=== PATIENT | female | born 1955 | race Caucasian/White ===

== ENCOUNTER 2018-11-08 08:56 | Day surgery (SDC) | payer MEDICARE, MEDICAID ==
[~2018-11-08] VITALS: Ht 154.9 cm; Wt 69.8 kg
[2018-11-08] MEDS ORDERED: ALTACE 2.5MG T2.5 MG PO (09:34)
[2018-11-08] MEDS ORDERED: PLETAL50 MG PO (09:35)
[2018-11-08] MEDS ORDERED: ZANTAC 150MG T150 MG PO (09:36)
[2018-11-08] MEDS ORDERED: NORVASC2.5 MG PO (09:37)
[2018-11-08] MEDS ORDERED: GLUCOPHAGE XR500 M1 PO (09:38)
[2018-11-08] MEDS ORDERED: SOMA 350MG350 MG/TAB PO (09:39)
[2018-11-08 09:43] VITALS: BP 139/88; PULSE 77; TEMP 97.1
[2018-11-08 12:40] VITALS: BP 140/80; PULSE 16; TEMP 97.5
[2018-11-08 12:55] VITALS: BP 145/90; PULSE 69
[2018-11-08 13:10] VITALS: BP 149/81; PULSE 65
--- NOTE | 2018-11-08 13:46 | NUR ---
PT RETURNED FROM ENDO OR SUITE PER CART INTO BAY#4. PT ALERT AND ORIENTATED, ALITTLE SLEEPY. REQUESTED A COKE AND BLUEBERRY MUFFIN. LUNGS CLEAR, HRR, BOWEL SOUNDS PRESENT AND ACTIVE. PT DENIES PAIN, NAUSEA AND DISCOMFORT. PT DAUGHTER CALLED AND AT PT BEDSIDE. WILL CONT TO MONITOR PROGRESS.
--- NOTE | 2018-11-08 13:49 | NUR ---
PT TOLERATED FOOD AND FLUIDS. VSS, TALKING WITH DAUGHTER. REQUESTING TO GET 'IV OUT AND GO HOME'. DENIES NAUSEA AND VOMITING OR DISCOMFORT. WILL MONITOR.
--- NOTE | 2018-11-08 13:52 | NUR ---
PT SITTING UP, TALKING WITH DAUGHTER. IV DC'D PER RIGHT WRIST, PT TOLERATED WELL. DENIES, NAUSEA, VOMITING OR PAIN. DC INSTRUCTIONS GIVEN, PT AND DAUGHTER VOICE UNDERSTANDING. REQUESTS FOLLOW UP IN HIS OFFICE NEXT WEEK. OFFICE CALLED. APPOINTMENT OPTIONS ARE NOT COMPATIBLE WITH DAUGHTERS WORK SCHEDULE. GAVE DAUGHTER AND PT THE PHONE NUMBER TO MAKE APPT FOR NEXT WEEK. THEY BOTH VOICE UNDERSTANDING. ALL QUESTIONS ANSWERED. PT TAKEN OUT VIA WC TO FAMILY VEHICLE. DAUGHTER DRIVING.
== END 2018-11-08 13:30 | disposition home or self-care (01) ==
LOC: SDCO 08:56
DX: Z86.010 Personal history of colon polyps (principal); D12.2 Benign neoplasm of ascending colon; K62.3 Rectal prolapse; N81.10 Cystocele, unspecified; Z90.710 Acquired absence of both cervix and uterus; Z90.721 Acquired absence of ovaries, unilateral; Z90.49 Acquired absence of other specified parts of digestive tract; Z79.899 Other long term (current) drug therapy; I10 Essential (primary) hypertension; I73.1 Thromboangiitis obliterans [Buerger's disease]; Z87.891 Personal history of nicotine dependence; K21.9 Gastro-esophageal reflux disease without esophagitis; Z79.02 Long term (current) use of antithrombotics/antiplatelets; E11.42 Type 2 diabetes mellitus with diabetic polyneuropathy
CPT/HCPCS: J2704; J3010; J7120

== ENCOUNTER 2020-09-19 05:31 | Day surgery (SDC) | payer MEDICARE, MEDICAID ==
[2020-09-19] VITALS (15 sets, daily range): BP systolic 92–115; BP diastolic 8–82; PULSE 64–88; TEMP 97.6–97.9
[~2020-09-19] VITALS: Ht 154.9 cm; Wt 67.3 kg
[~2020-09-19 05:31] MED LIST: ALTACE 2.5MG T2.5 MG PO; GLUCOPHAGE XR500 M1 PO; NORVASC2.5 MG PO; PLETAL50 MG PO; SOMA 350MG350 MG/TAB PO; ZANTAC 150MG T150 MG PO
[2020-09-19] MEDS ORDERED: LOPRESSOR 550 MG/TAB PO (06:03)
[2020-09-19] MEDS ORDERED: CRESTOR 10MG10 MG PO (06:04)
[2020-09-19] MEDS ORDERED: PLETAL 100MG T100 MG PO (06:04)
[2020-09-19] MEDS ORDERED: PLAVIX 75MG TAB75 MG PO (06:04)
[2020-09-19] MEDS ORDERED: VISTARIL 2525 MG/CAP PO (06:05)
[2020-09-19] MEDS ORDERED: FLEXERIL 1010 MG/TAB PO (06:05)
[2020-09-19] MEDS ORDERED: ELIQUIS 5MG PO (06:05)
[2020-09-19] MEDS ORDERED: PREVACID 15MG15 M1 PO (06:06)
[2020-09-19] MEDS ORDERED: NEURONTIN300 MG/CAP PO (06:06)
[2020-09-19] MEDS ORDERED: TRULICITY0.75 MG/0. SQ (06:06)
[2020-09-19] MEDS ORDERED: TYLENOL W/COD1 UDTAB PO (06:06)
[2020-09-19] MEDS ORDERED: BASAGLAR K100 UNIT/1 SQ (06:07)
--- NOTE | 2020-09-19 11:05 | NUR ---
returned to room per bed from PACU, awake and alert, IV infusing and placed on pump at 75ml/hr, O2 on at 3L/NC and O2 sat 99%, O2 down to 2L and will monitor, robotic sites CD&I, SCDs on bilaterally, c/o some pain, daughter at bedside
--- NOTE | 2020-09-19 11:30 | NUR ---
give water and takes without nausea, requesting sprite and provided, request something for pain
--- NOTE | 2020-09-19 11:45 | NUR ---
medicated with scheduled toradol and tylenol ES, requesting tylenol #3 as she takes that at home, explained to her I would need to start with what I gave her and then if continues with pain will provide pain pill,
--- NOTE | 2020-09-19 12:45 | NUR ---
full assessment completed, see interventions for further info, also provided clear liquid diet per her request, explained if she tolerates this well will changed to genral diet for supper, verbalizes understanding
--- NOTE | 2020-09-19 14:15 | NUR ---
tolerated clear liquid diet, instructed on ordering regular food for supper,
--- NOTE | 2020-09-19 14:47 | NUR ---
resting quiet sitting up in bed, provided coffee per her request, no other needs voiced at this time
--- NOTE | 2020-09-19 15:42 | NUR ---
bedside shift report given to ANGEL Lino
--- NOTE | 2020-09-19 15:47 | NUR ---
Bedside report recieved from ANGEL Bell. Patient currently laying in bed asleep.
[2020-09-20 03:56] VITALS: BP 115/59; PULSE 84; TEMP 97
--- NOTE | 2020-09-20 05:26 | NUR ---
Assessment completed, alert, oriented. Patient is in pain all night. PRN pain meds given per order. Has elias catheter last night and pulled this morning. Patient can able to get up stand by assisst. Denies SOB she is on Ancef for prophylactic. Has 5x insicion sites in belly that is glued. No further complain, continue to monitor.
[2020-09-20 07:20] VITALS: BP 119/56; PULSE 68; TEMP 97.9
--- NOTE | 2020-09-20 08:41 | NUR ---
rounded. Informed him of medication list needing reviewed. Plan of care reviewed, patient reports she cant go home today, she will not have a ride. Patient out of bed. Up to chair. Pain with movement. She voided pale yellow urine. Iv to INT. Abdomen soft, reports passing flatus. lap site edges well approximated. blood sugar stable at 109.Will monitor.
[2020-09-20 11:03] VITALS: BP 141/90; PULSE 83; TEMP 98.3
--- NOTE | 2020-09-20 11:15 | NUR ---
Patient has been independent in room. She has been up to the bathroom. Will monitor.
--- NOTE | 2020-09-20 14:54 | NUR ---
Patient resting in bed. Encouraged her to rest. Rated her pain a 10/10. Roxicodone per request. Pain increased with coughing. She tolerated lunch without nausea. She continues to void adequately. Also she reports loose stools and does not want anymore stool softners.
[2020-09-20 16:00] VITALS: BP 131/66; PULSE 65; TEMP 98.3
--- NOTE | 2020-09-20 19:16 | NUR ---
Patient independent in room. Continue with eras protocol. Tylenol & Toradol as scheduled. Tolerating diet. Voiding & bowels working. Bedside report to Kyle Prasad
[2020-09-20 19:33] VITALS: BP 137/60; PULSE 56; TEMP 97.9
[2020-09-20 23:29] VITALS: BP 124/46; PULSE 60; TEMP 97.9
[2020-09-21 03:52] VITALS: BP 147/73; PULSE 56; TEMP 97.6
--- NOTE | 2020-09-21 05:30 | NUR ---
RESTING QUIETLY/SLEEPING MOST OF NIGHT. NO N/V. UP INDEPENDENTLY IN ROOM. OXYCODONE AND SCHEDULED TORADOL FOR PAIN.
[2020-09-21 07:10] VITALS: BP 152/91; PULSE 50; TEMP 98.5
[2020-09-21 12:28] VITALS: BP 140/67; PULSE 65; TEMP 97.7
[2020-09-21] MEDS ORDERED: NORCO 325 MG-51 TAB PO (12:46)
[2020-09-21] MEDS ORDERED: COLACE 100100 MG/CAP PO (12:46)
--- NOTE | 2020-09-21 13:20 | NUR ---
PT BEING D/C AT THIS TIME. NO S/S OF DISTRESS NOTICED. PT AOX3. D/C INSTRUCTIONS REVIEWED WITH THE PT AND SHE VERBALIZES THAT SHE UNDERSTANDS. PT GIVE 4 TABS OF NARCO MEDICATION PER MD ORDER DUE TO THE FACT THAT HER PHARMACY IS CLOSED. INSTRUCTIONS ON MEDICATION REVIEWED WITH PT. PT GOT DRESSED AND IS WAITING FOR HER TRANSPORTATION HOME. PT PACKED HER BELONGINGS.
== END 2020-09-21 15:40 | disposition home or self-care (01) ==
LOC: SDCO 05:31 → SURG 11:05 → SDCO 09-21 15:40
DX: N99.3 Prolapse of vaginal vault after hysterectomy (principal); K62.3 Rectal prolapse; I10 Essential (primary) hypertension; E11.42 Type 2 diabetes mellitus with diabetic polyneuropathy; I48.91 Unspecified atrial fibrillation; I73.1 Thromboangiitis obliterans [Buerger's disease]; I73.9 Peripheral vascular disease, unspecified; Z86.73 Personal history of transient ischemic attack (TIA), and cerebral infarction without residual deficits; K21.9 Gastro-esophageal reflux disease without esophagitis; Z79.899 Other long term (current) drug therapy; Z87.891 Personal history of nicotine dependence; Z79.02 Long term (current) use of antithrombotics/antiplatelets; Z79.01 Long term (current) use of anticoagulants; Z79.82 Long term (current) use of aspirin; Z98.62 Peripheral vascular angioplasty status; Z95.818 Presence of other cardiac implants and grafts
CPT/HCPCS: OP; A4314; C1781; J0690; J1100; J1885; J2250; J2270; J2405; J2704; J3010; J7120

== ENCOUNTER 2021-04-06 08:11 | Outpatient (CLI) | payer MEDICARE, MEDICAID ==
[~2021-04-06] VITALS: Ht 154.9 cm; Wt 61.1 kg
[~2021-04-06 08:11] MED LIST changes: +BASAGLAR K100 UNIT/1 SQ; +COLACE 100100 MG/CAP PO; +CRESTOR 10MG10 MG PO; +ELIQUIS 5MG PO; +FLEXERIL 1010 MG/TAB PO; +LOPRESSOR 550 MG/TAB PO; +NEURONTIN300 MG/CAP PO; +NORCO 325 MG-51 TAB PO; +PLAVIX 75MG TAB75 MG PO; +PLETAL 100MG T100 MG PO; +PREVACID 15MG15 M1 PO; +TRULICITY0.75 MG/0. SQ; +TYLENOL W/COD1 UDTAB PO; +VISTARIL 2525 MG/CAP PO
[2021-04-06] MEDS ORDERED: VISTARIL50 MG PO (08:44)
[2021-04-06] MEDS ORDERED: PREVACID 15MG15 M1 PO (08:44)
[2021-04-06] MEDS ORDERED: PLETAL 100MG T100 MG PO (08:45)
[2021-04-06] MEDS ORDERED: ALTACE 2.5MG T2.5 MG PO (08:47)
[2021-04-06 09:00] VITALS: BP 109/58; PULSE 97; TEMP 97.6
[2021-04-06 09:37] LABS: BASO # 0.1 K/mm3 (0.0-0.2); BASO % 0.9 % (0.0-2.0); EOS # 0.2 K/mm3 (0.0-0.7); EOS % 1.5 % (0.0-4.0); GRAN # 6.8 K/mm3 (1.4-6.5); GRAN % 62.1 % (42.2-75.2); HEMATOCRIT 49.6 % (37.0-47.0); HEMOGLOBIN 15.6 g/dl (12.5-16.0); LYMPH # 2.8 K/mm3 (1.2-3.4); LYMPH % 25.6 % (20.0-51.0); MEAN CELL VOLUME 88 fl (80.0-100.0); MEAN CORPUSCULAR HEMOGLOBIN 28 pg (27-31); MEAN CORPUSCULAR HGB CONC 32 g/dl (33.0-37.0); MEAN PLATELET VOLUME 9.8 fl (7.4-10.4); MONO % 9.3 % (1.7-9.3); PLATELET COUNT 822 K/mm3 (130-400); RED BLOOD COUNT 5.61 M/mm3 (4.10-5.30); REDCELL DISTRIBUTION WIDTH-CV 17.9 % (11.5-14.5)
[2021-04-06 09:45] VITALS: BP 102/57; PULSE 96; TEMP 97.5
--- NOTE | 2021-04-06 09:45 | NUR ---
Patient arrived from PACU awake and oriented x3. Vital signs WNL. The patient requested hot coffee, and a blueberry muffin. Ice water also provided. The patient denies nausea. No vomiting. Call bush is within reach at bedside. Side rails x1.
--- NOTE | 2021-04-06 10:00 | NUR ---
Vitals obtained. The patient expressed desire to be discharged.
--- NOTE | 2021-04-06 10:15 | NUR ---
Vitals obtained and a second cup of coffee provided w/cream. Call bush remains within reach.
--- NOTE | 2021-04-06 10:30 | NUR ---
Vitals obtained. IV was discontinued. Catheter tip intact. Pressure dressing applied. No redness or swelling noted. Her bandage is clean and dry, without any signs of bleeding. DC instructions and educational material was reviewed. The patient verbalized understanding of the material, denied having any questions or concerns and signed the realted paperwork. She denied needing assistance changing into her personal clothes. The patient was then [facility]. The patient has her DC packet in hand, and was transferred into the care of her friend Norma who is present to drive.
--- NOTE | 2021-04-06 10:55 | NUR ---
The patient was transferred into the care of her friend, who is present to drive. The patient has her DC packet in hand.
[2021-04-06 13:45] VITALS: BP 102/57; PULSE 96
== END 2021-04-06 10:55 | disposition home or self-care (01) ==
LOC: SDCO 08:11
PROVIDERS: Pathology Anatomic Pathology & Clinical Pathology
DX: D47.3 Essential (hemorrhagic) thrombocythemia (principal)
CPT/HCPCS: J7120